=== PATIENT | female | born 2000 | race Caucasian/White ===

== ENCOUNTER 2021-02-09 10:30 | Emergency (ER) | payer BC, MEDICAID ==
[~2021-02-09] VITALS: Ht 160 cm; Wt 58.4 kg
[2021-02-09 14:34] VITALS: BP 112/70
== END 2021-02-09 14:44 | disposition home or self-care (01) ==
LOC: ED 12:24
DX: N93.8 Other specified abnormal uterine and vaginal bleeding (principal); N92.1 Excessive and frequent menstruation with irregular cycle
CPT/HCPCS: 36415; 76830; 80048; 81001; 82040; 84703; 85025; 87086; 96360; 99284; J7030